=== PATIENT | female | born 1960 | race Caucasian/White ===

== ENCOUNTER 2018-06-24 07:05 | Day surgery (SDC) | payer MEDICAID ==
[~2018-06-24] VITALS: Ht 172.7 cm; Wt 103.9 kg
--- NOTE | ~2018-06-24 | OP ---
PATIENT NAME: NEO MONTGOMERY MEDICAL RECORD: [id number] :64 LOCATION:[facility] ADMISSION DATE: SURGEON: JAXSON SONG MD DATE OF OPERATION: 06/24/2018 PREOPERATIVE DIAGNOSES: 1. Gallstones. 2. Hypertension. 3. Arthritis. 4. Morbid obesity. POSTOPERATIVE DIAGNOSES: 1. Gallstones. 2. Hypertension. 3. Arthritis. 4. Morbid obesity. PROCEDURE: Laparoscopic cholecystectomy. SURGEON: Jaxson Song MD CAMP MAINTENANCE SUPERVISOR: Lore Martin REPORT OF PROCEDURE: The patient's abdomen was prepped and draped in sterile fashion. A cutdown was made on the superior aspect of the umbilicus and 0 Vicryls were placed in the fascia bilaterally. The fascia was incised with a 15-blade and I bluntly entered the peritoneal cavity. A 12-mm Nathan port was inserted and the abdomen was insufflated. Under direct visualization, a 5 mm trocar was placed in the epigastrium and 2 more 5-mm trocars were placed in the right subcostal region. The gallbladder was elevated and there were no signs of any inflammatory changes. The cystic artery and cystic duct were dissected free and these were clipped proximally and distally and ligated in standard fashion. The gallbladder was taken off the liver bed using electrocautery and placed into the right upper quadrant. Any bleeding from the liver bed was then treated with electrocautery. At this point, the ports and insufflation were then removed and the gallbladder was taken out through the umbilicus. The umbilical fascia was closed with interrupted 0 Vicryls times 3. The wounds were then irrigated out with normal saline, infused with 10 mL of 0.25% Marcaine with epinephrine. COMPLICATIONS: None. CONDITION: Stable. ANESTHESIA: General endotracheal and local. BLOOD LOSS: Minimal. TRANSINT:[id number] Voice Confirmation ID: [id number] DOCUMENT ID: [id number] OPERATIVE REPORT [id number] VALENTINANEO Juany JAXSON SONG MD at 0918 CC: BRIANNE POSADAS [id number] DICTATION DATE: 06/24/18 1310 AUTOMATIC SPLICING MACHINE OPERATOR: 06/24/18 1323 [facility] 06/24/18 [place] [address]
[~2018-06-24 07:05] MED LIST: CYCLOBENZAPRINE10 MG PO; EDARBYCLOR 40-1 EAC1 PO; EDARBYCLOR 40-1 EACH PO; HYDROCODONE-APA1 TAB PO; PRISTIQ50 MG PO; TEMAZEPAM30 MG PO; TRICOR145 MG PO; VITAMIN E400 UNI2 PO; ZANAFLEX4 MG PO
[2018-06-24 07:24] LABS: EOSINOPHILS 5.5 % (0-7); HEMATOCRIT 37.1 % (36.0-48.0); HEMOGLOBIN 12.5 g/dL (12-16); IMMATURE GRANULOCYTES 0.3 % (0-5); LYMPHOCYTES 43.6 % (15-50); MCH 29.4 pg (26.0-34.0); MCHC 33.7 g/dL (31.0-37.0); MCV 87.3 fL (80.0-100.0); MEAN PLATELET VOLUME 9.3 fL (7.4-10.4); MONOCYTES 8.6 % (2-11); PLATELET COUNT 307 10x3/uL (130-400); RBC 4.25 10x6/uL (4.00-5.40); RDW 13.7 % (11.5-14.5); WBC 5.8 10x3/uL (4.8-10.8)
[2018-06-24 07:56] LABS: ANION GAP 9.8 mmol/L (8-16); CALCIUM 9.4 mg/dL (8.5-10.1); CARBON DIOXIDE 32.2 mmol/L (21.0-32.0); CREATININE - SERUM 1.4 mg/dL (0.6-1.3)
[2018-06-24] MEDS ORDERED: ZANAFLEX4 MG PO (08:39)
[2018-06-24 08:46] VITALS: BP 112/64; BMI 34.9
[2018-06-24 09:07] VITALS: BP 112/64; Ht 172.7 cm; Wt 103.9 kg
[2018-06-24] MEDS ORDERED: HYDROCODONE-APA1 TAB PO (13:07)
== END 2018-06-24 16:45 | disposition home or self-care (01) ==
LOC: D.OPS 07:05 → D.PAN 09:00 → D.OPS 16:45
PROVIDERS: Surgery
DX: K80.10 Calculus of gallbladder with chronic cholecystitis without obstruction (principal); I10 Essential (primary) hypertension; M19.90 Unspecified osteoarthritis, unspecified site; E66.01 Morbid (severe) obesity due to excess calories; Z68.34 Body mass index [BMI] 34.0-34.9, adult; Z01.812 Encounter for preprocedural laboratory examination